=== PATIENT | male | born 1980 | race Caucasian/White ===

== ENCOUNTER 2021-01-21 02:57 | Emergency (ER) | payer OTHER ==
[2021-01-21] MEDS ORDERED: CELEBREX100 MG PO (03:41)
== END 2021-01-21 04:10 | disposition home or self-care (01) ==
LOC: ER1 02:57
DX: S83.92XA Sprain of unspecified site of left knee, initial encounter (principal); X50.1XXA Overexertion from prolonged static or awkward postures, initial encounter; Y92.009 Unspecified place in unspecified non-institutional (private) residence as the place of occurrence of the external cause
CPT/HCPCS: 29530; 73562; 96372; 99283; J1885

== ENCOUNTER → 2022-05-18 | Outpatient (CLI) | payer OTHER ==
[~2022-05-18] MED LIST: CELEBREX100 MG PO
== END ==
LOC: KOH-I 16:35
DX: R07.89 Other chest pain (principal)
CPT/HCPCS: 71046